=== PATIENT | female | born 1935 | race Caucasian/White ===

== ENCOUNTER 2022-09-20 12:23 | Emergency (ER) | payer MEDICARE ==
[~2022-09-20] VITALS: Ht 167.6 cm; Wt 85.7 kg
[~2022-09-20 12:23] MED LIST: GABAPENTIN600 MG PO; PREDNISONE10 MG PO; PREDNISONE20 MG PO; SYMBICORT 16010.2 GM INH; XANAX1 MG PO
[2022-09-20 13:20] LABS: BASOPHILS # (AUTO) 0.1 (0.0-0.1); BASOPHILS % 0.6 % (0.0-1.0); EOSINOPHILS # (AUTO) 0.2 (0.0-0.4); EOSINOPHILS % 1.8 % (0.0-6.0); HEMATOCRIT 35.3 % (34.2-44.1); HEMOGLOBIN 10.9 g/dL (12.0-16.0); LYMPHOCYTES # (AUTO) 3.4 (1.0-3.2); MEAN CORPUSCULAR HGB CONC 30.9 g/dL (31-35); MEAN CORPUSCULAR VOLUME 87.4 fL (81-99); MONOCYTES # (AUTO) 0.9 (0.2-0.8); MONOCYTES % 6.7 % (4.4-11.3); NEUTROPHILS # (AUTO) 8.4 (2.1-6.9); NEUTROPHILS % 64.6 % (38.7-80.0); PLATELET COUNT 401 x10e3/uL (140-360); RED BLOOD COUNT 4.04 x10e6/uL (3.6-5.1); RED CELL DISTRIBUTION WIDTH 16.2 % (11.7-14.4)
[2022-09-20 13:37] LABS: ALBUMIN 3.3 g/dL (3.5-5.0); ANION GAP 15.1 mmol/L (8-16); CALCIUM 8.8 mg/dL (8.4-10.2); CREATININE, SERUM 0.87 mg/dL (0.57-1.11); POTASSIUM 4.1 mmol/L (3.5-5.1)
[2022-09-20] MEDS ORDERED: KETOROLAC TROMETHAMINE 30 MG/ML VIAL IV ONE (15:00)
[2022-09-20] MEDS ORDERED: BENZONATATE100 MG PO (16:22)
== END 2022-09-20 16:45 | disposition home or self-care (01) ==
LOC: ER 12:31
DX: R06.02 Shortness of breath (principal); R05.9 Cough, unspecified; J45.909 Unspecified asthma, uncomplicated; K21.9 Gastro-esophageal reflux disease without esophagitis; Z20.822 Contact with and (suspected) exposure to COVID-19
CPT/HCPCS: 36415; 71045; 80053; 83880; 85025; 93005; 99284; J1885; U0002

== ENCOUNTER 2023-05-08 13:06 | Emergency (ER) | payer MEDICARE ==
[~2023-05-08] VITALS: Ht 167.6 cm; Wt 85.7 kg
[~2023-05-08 13:06] MED LIST changes: +BENZONATATE100 MG PO
[2023-05-08 13:15] VITALS: O2SAT 95
[2023-05-08] MEDS ORDERED: KETOROLAC TROMETHAMINE 60 MG/2 ML VIAL IM ONE (13:45)
[2023-05-08] MEDS ORDERED: CYCLOBENZAPRINE10 MG PO (16:44)
== END 2023-05-08 16:40 | disposition home or self-care (01) ==
LOC: ER 13:33
DX: M54.12 Radiculopathy, cervical region (principal); J45.909 Unspecified asthma, uncomplicated; M19.09 Primary osteoarthritis, other specified site
CPT/HCPCS: 72125; 93005; 99283; J1885

== ENCOUNTER 2024-04-16 17:20 | Inpatient (IN) | payer MEDICARE ==
[~2024-04-16] VITALS: Ht 167.6 cm; Wt 73.5 kg
[2024-04-16] VITALS (7 sets, daily range): BP systolic 118–150; BP diastolic 51–73; PULSE 65–77; RESP 12–19; TEMP 97.4–98.6; O2SAT 92–97
[~2024-04-16 17:20] MED LIST changes: +CYCLOBENZAPRINE10 MG PO
[2024-04-16] MEDS ORDERED: SODIUM CHLORIDE FLUSH 10 ML SYR IV PRN (18:45)
[2024-04-16 18:52] LABS: BASOPHILS # (AUTO) 0.1 (0.0-0.1); EOSINOPHILS # (AUTO) 0.4 (0.0-0.4); EOSINOPHILS % 3.9 % (0.0-6.0); HEMATOCRIT 34.5 % (34.2-44.1); HEMOGLOBIN 10.2 g/dL (12.0-16.0); LYMPHOCYTES % 28.6 % (18.0-39.1); MEAN CORPUSCULAR HEMOGLOBIN 28.5 pg (28-32); MEAN CORPUSCULAR HGB CONC 29.6 g/dL (31-35); MEAN CORPUSCULAR VOLUME 96.4 fL (81-99); MONOCYTES # (AUTO) 0.6 (0.2-0.8); NEUTROPHILS # (AUTO) 6.3 (2.1-6.9); NEUTROPHILS % 60.2 % (38.7-80.0); PLATELET COUNT 400 x10e3/uL (140-360); RED BLOOD COUNT 3.58 x10e6/uL (3.6-5.1); RED CELL DISTRIBUTION WIDTH 16.1 % (11.7-14.4); WHITE BLOOD COUNT 10.42 x10e3/uL (4.8-10.8)
[2024-04-16] MEDS: ONDANSETRON HCL INJ 2MG/ML 2ML 2 MG/ML VIAL IV STA (18:52)
[2024-04-16] MEDS: Morphine 4mg INJECTION 4 MG/ML INJ IV ONE (18:52)
[2024-04-16] MEDS: NICARDIPINE 20MG/200ML PREMIX 200 ML IV SCH (18:57)
[2024-04-16 19:08] LABS: ALBUMIN 3.4 g/dL (3.5-5.0); ALBUMIN/GLOBULIN RATIO 1.2 (0.8-2.0); ANION GAP 13.5 mmol/L (8-16); BILIRUBIN,TOTAL 0.2 mg/dL (0.2-1.2); CALCIUM 8.7 mg/dL (8.4-10.2); CREATININE, SERUM 0.97 mg/dL (0.57-1.11); POTASSIUM 4.5 mmol/L (3.5-5.1); TOTAL PROTEIN 6.3 g/dL (6.5-8.1)
[2024-04-16] MEDS: ASPIRIN 81 MG CHEW TAB PO ONE (19:13)
[2024-04-16 19:46] LABS: TROPONIN I 0.009 ng/mL (0-0.300)
[2024-04-16] MEDS ORDERED: SODIUM CHLORIDE FLUSH 10 ML SYR INJ PRN (20:45)
[2024-04-16] MEDS ORDERED: ALBUTEROL SULF 0.083% NEB SOLN 3 ML NEB NEB PRN (20:45)
[2024-04-16] MEDS: MUPIROCIN 2% OINT 22 GM TUBE TOP SCH (22:55)
[2024-04-17] VITALS (50 sets, daily range): BP systolic 85–153; BP diastolic 42–104; PULSE 56–80; RESP 9–23; TEMP 97.3–98.3; O2SAT 91–99
[2024-04-17 00:01] LABS: TROPONIN I 0.003 ng/mL (0-0.300)
[2024-04-17] MEDS: Morphine 4mg INJECTION 4 MG/ML INJ IV PRN (00:20)
[2024-04-17] MEDS ORDERED: PERCOCET 5-3251 EACH PO (05:23)
[2024-04-17] MEDS: ASPIRIN 81 MG CHEW TAB PO ONE (06:30)
[2024-04-17 06:42] LABS: BASOPHILS # (AUTO) 0.1 (0.0-0.1); BASOPHILS % 0.9 % (0.0-1.0); EOSINOPHILS # (AUTO) 0.6 (0.0-0.4); EOSINOPHILS % 6.2 % (0.0-6.0); HEMATOCRIT 33.4 % (34.2-44.1); LYMPHOCYTES % 32.5 % (18.0-39.1); MEAN CORPUSCULAR HEMOGLOBIN 28.7 pg (28-32); MEAN CORPUSCULAR HGB CONC 29.9 g/dL (31-35); MONOCYTES # (AUTO) 0.8 (0.2-0.8); MONOCYTES % 8.3 % (4.4-11.3); NEUTROPHILS # (AUTO) 4.8 (2.1-6.9); NEUTROPHILS % 51.9 % (38.7-80.0); PLATELET COUNT 386 x10e3/uL (140-360); RED BLOOD COUNT 3.48 x10e6/uL (3.6-5.1); RED CELL DISTRIBUTION WIDTH 16.3 % (11.7-14.4); WHITE BLOOD COUNT 9.25 x10e3/uL (4.8-10.8)
[2024-04-17 07:03] LABS: ALBUMIN 2.9 g/dL (3.5-5.0); ANION GAP 14.4 mmol/L (8-16); BILIRUBIN,TOTAL 0.3 mg/dL (0.2-1.2); CALCIUM 8.5 mg/dL (8.4-10.2); CREATININE, SERUM 0.78 mg/dL (0.57-1.11); POTASSIUM 4.4 mmol/L (3.5-5.1); TOTAL PROTEIN 5.7 g/dL (6.5-8.1)
[2024-04-17 07:15] LABS: CREATINE KINASE 17 IU/L (29-168)
[2024-04-17 07:30] LABS: TROPONIN I < 0.05 ng/mL (0.0-0.40)
[2024-04-17 07:33] LABS: CHOL/HDL RATIO 3.9 (3.0-3.6)
[2024-04-17] MEDS: VALSARTAN 80 MG TAB PO SCH (07:41)
[2024-04-17] MEDS: AMLODIPINE BESYLATE 5 MG TAB PO SCH (08:31)
[2024-04-17] MEDS ORDERED: VALSARTAN 80 MG TAB PO SCH (09:00)
[2024-04-17] MEDS: BUDESONIDE/FORMOTEROL 160/4.5MCG INHALER INH SCH (09:00)
[2024-04-17] MEDS ORDERED: AMBIEN5 MG PO (10:12)
[2024-04-17] MEDS: ONDANSETRON HCL INJ 2MG/ML 2ML 2 MG/ML VIAL IV PRN (12:59)
[2024-04-17] MEDS: GABAPENTIN 300 MG CAP PO SCH (13:00)
[2024-04-17 13:14] LABS: THYROID STIMULATING HORMONE 6.22 uIU/mL (0.350-4.940)
[2024-04-17] MEDS: ALPRAZOLAM 0.5 MG TAB PO SCH (20:37)
[2024-04-17] MEDS: OXYCODONE/ACETAMINOPHEN 5-325 1 EACH TABLET PO PRN (20:38)
[2024-04-17] MEDS: HYDRALAZINE HCL 20 MG/ML VIAL IV PRN (21:33)
[2024-04-18 00:53] VITALS: BP 123/58; PULSE 86; RESP 16; TEMP 97.9; O2SAT 94
[2024-04-18 04:00] VITALS: BP 116/57; PULSE 77; RESP 16; TEMP 98; O2SAT 94
[2024-04-18] MEDS: LEVOTHYROXINE SODIUM 25 MCG TABLET PO SCH (05:03)
[2024-04-18 07:59] VITALS: PULSE 72; RESP 16; O2SAT 92
[2024-04-18 08:00] VITALS: BP 110/62; PULSE 76; RESP 20; TEMP 98.8; O2SAT 93
[2024-04-18 08:48] LABS: TROPONIN I 0.02 ng/mL (0-0.300)
[2024-04-18 09:24] VITALS: BP 110/62
[2024-04-18] MEDS ORDERED: NORVASC5 MG PO (11:04)
[2024-04-18] MEDS ORDERED: LEVOTHYROXINE25 MCG PO (11:04)
== END 2024-04-18 11:58 | disposition home or self-care (01) | DRG 305 ==
LOC: ER 17:42 → ERHOLD 20:34 → ICU 22:25 → MED/SURG 04-17 16:43
PROVIDERS: ADMIT Internal Medicine; ATTEND Internal Medicine
DX: I16.0 Hypertensive urgency (principal); I10 Essential (primary) hypertension; D64.9 Anemia, unspecified; R07.9 Chest pain, unspecified; J45.909 Unspecified asthma, uncomplicated; F41.9 Anxiety disorder, unspecified; M19.90 Unspecified osteoarthritis, unspecified site; Z79.51 Long term (current) use of inhaled steroids
CPT/HCPCS: 36415; 71045; 80053; 80061; 82550; 83036; 83880; 84443; 84484; 85025; 93005; 93306; 94760; 94799; 99284; J0360; J2270; J2405

== ENCOUNTER 2024-12-25 17:45 | Emergency (ER) | payer MEDICARE ==
[~2024-12-25] VITALS: Ht 167.6 cm; Wt 72.6 kg
[~2024-12-25 17:45] MED LIST changes: +AMBIEN5 MG PO; +LEVOTHYROXINE25 MCG PO; +NORVASC5 MG PO; +PERCOCET 5-3251 EACH PO
[2024-12-25 18:18] LABS: BASOPHILS % 0.5 % (0.0-1.0); EOSINOPHILS % 2.0 % (0.0-6.0); LYMPHOCYTES % 33.9 % (18.0-39.1); MONOCYTES % 6.4 % (4.4-11.3); NEUTROPHILS % 56.9 % (38.7-80.0); RED CELL DISTRIBUTION WIDTH 14.5 % (11.7-14.4)
[2024-12-25 18:36] LABS: EST GLOMERULAR FILTRATION RATE 62.0 ML/MIN (>=60)
[2024-12-25] MEDS: KETOROLAC TROMETHAMINE 30 MG/ML VIAL IV STA (19:52)
[2024-12-25 21:25] VITALS: PULSE 82; RESP 17; TEMP 98.2; O2SAT 95
== END 2024-12-25 21:28 | disposition home or self-care (01) ==
LOC: ER 18:13
DX: R06.02 Shortness of breath (principal); R07.89 Other chest pain; M54.6 Pain in thoracic spine; R51.9 Headache, unspecified
CPT/HCPCS: 36415; 70450; 71045; 80053; 83690; 84484; 85025; 93005; 99284; J1885